=== PATIENT | male | born 1995 | race Caucasian/White ===

== ENCOUNTER 2022-06-09 13:41 | Emergency (ER) | payer MEDICAID ==
[~2022-06-09] VITALS: Ht 180.3 cm; Wt 86.2 kg
[2022-06-09] MEDS ORDERED: PRED20TA PO (14:52)
[2022-06-09] MEDS ORDERED: VALA100026 PO (14:52)
[2022-06-09 14:59] VITALS: BP 135/78
--- NOTE | 2022-06-09 14:59 | NUR ---
Patient discharged to home in stable condition. Written and verbal after care instructions given. Patient verbalizes understanding of instruction.
== END 2022-06-09 15:00 | disposition home or self-care (01) ==
LOC: ER 13:49
DX: G51.0 Bell's palsy (principal)

== ENCOUNTER 2022-08-17 20:20 | Emergency (ER) | payer MEDICAID ==
[~2022-08-17] VITALS: Ht 180.3 cm; Wt 83.9 kg
[~2022-08-17 20:20] MED LIST: PRED20TA PO; VALA100026 PO
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
[2022-08-17] MEDS ORDERED: VALA100026 PO (20:49)
[2022-08-17] MEDS ORDERED: IBUP-1957 PO (20:49)
[2022-08-17] MEDS ORDERED: PRED50TA PO (20:49)
[2022-08-17] MEDS ORDERED: IBUPROFEN 400 MG TABLET ONE (20:57)
[2022-08-17] MEDS ORDERED: predniSONE 20 MG TABLET ONE (20:57)
[2022-08-17] MEDS ORDERED: VALACYCLOVIR HCL 500 MG TABLET ONE (20:58)
[2022-08-17] MEDS ORDERED: IBUPROFEN 400 MG TABLET PO ONE (21:00)
[2022-08-17] MEDS ORDERED: VALACYCLOVIR HCL 500 MG TABLET PO ONE (21:00)
[2022-08-17] MEDS ORDERED: predniSONE 50 MG TABLET PO ONE (21:00)
--- NOTE | 2022-08-17 21:09 | NUR ---
Patient discharged to home in stable condition. RX Written and verbal after care instructions given. Patient verbalizes understanding of instruction. PT ambulatory with a steady gait
[2022-08-17 21:10] VITALS: BP 137/84
== END 2022-08-17 21:13 | disposition home or self-care (01) ==
LOC: ER 20:21
DX: G51.0 Bell's palsy (principal); Z79.899 Other long term (current) drug therapy

== ENCOUNTER 2023-04-02 02:57 | Emergency (ER) | payer MEDICAID ==
[~2023-04-02] VITALS: Ht 172.7 cm; Wt 77.1 kg
[~2023-04-02 02:57] MED LIST changes: +IBUP-1957 PO; +PRED50TA PO
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
--- NOTE | 2023-04-02 04:25 | NUR ---
XR AT BEDSIDE
[2023-04-02] MEDS ORDERED: IBUPROFEN 600 MG TABLET ONE (05:58)
[2023-04-02] MEDS ORDERED: IBUP-1955 PO (06:04)
[2023-04-02] MEDS ORDERED: IBUPROFEN 600 MG TABLET PO ONE (06:30)
[2023-04-02 08:10] VITALS: BP 121/82
--- NOTE | 2023-04-02 08:10 | NUR ---
Patient discharged to home in stable condition, ambulating. Written and verbal after care instructions given. Patient verbalizes understanding of instruction.
== END 2023-04-02 08:10 | disposition home or self-care (01) ==
LOC: ER 03:05
DX: S93.491A Sprain of other ligament of right ankle, initial encounter (principal); R07.81 Pleurodynia; Z79.899 Other long term (current) drug therapy; Y09 Assault by unspecified means; Y93.89 Activity, other specified; Y92.89 Other specified places as the place of occurrence of the external cause; Y99.8 Other external cause status
CPT/HCPCS: 71045-TC; 73610-TC

== ENCOUNTER 2025-04-09 23:39 | Emergency (ER) | payer MEDICAID, OTHER ==
[~2025-04-09] VITALS: Ht 175.3 cm; Wt 83.9 kg
[~2025-04-09 23:39] MED LIST changes: +IBUP-1955 PO
[2025-04-10 01:13] LABS: BASOPHILS # (AUTO) 0.2 K/uL (0.0-0.2); BASOPHILS % (AUTO) 1.6 % (0.0-2.0); EOSINOPHILS # (AUTO) 0.4 K/uL (0.0-0.7); EOSINOPHILS % (AUTO) 3.8 % (0.0-6.0); HEMATOCRIT 44 % (39-51); HEMOGLOBIN 14.8 g/dL (13.5-17.5); LYMPHOCYTES # (AUTO) 2.1 K/uL (0.8-4.8); LYMPHOCYTES % (AUTO) 18.5 % (20.0-44.0); MEAN CORPUSCULAR HEMOGLOBIN 30 PG (26.0-33.0); MEAN CORPUSCULAR HGB CONC 34 g/dl (31.0-36.0); MEAN CORPUSCULAR VOLUME 89 fL (80-96); MONOCYTES # (AUTO) 0.5 K/uL (0.1-1.30); MONOCYTES % (AUTO) 4.8 % (2.0-12.0); NEUTROPHILS % (AUTO) 71.3 % (43.0-81.0); PLATELET COUNT (AUTO) 346 K/uL (150-450); RED BLOOD CELL COUNT(AUTO) 4.97 MIL/uL (4.5-6.0); RED CELL DISTRIBUTION WIDTH 13.1 % (11.5-15.0); WHITE BLOOD COUNT (AUTO) 11.3 K/uL (4.3-11.0)
[2025-04-10 01:19] LABS: CALCIUM, SERUM 9.4 mg/dL (8.5-10.1); CARBON DIOXIDE 28 mmol/L (21-32); CHLORIDE 103 mmol/L (98-107); GLUCOSE 106 mg/dL (74-106); POTASSIUM 3.8 mmol/L (3.5-5.1); SODIUM SERUM 140 mmol/L (136-145); UREA NITROGEN, BLOOD 12 mg/dL (7-18)
[2025-04-10 01:31] LABS: APPEARANCE,URINE CLEAR (CLEAR); BILIRUBIN,URINE NEGATIVE (NEGATIVE); BLOOD, URINE NEGATIVE Ery/uL (NEGATIVE); COLOR,URINE YELLOW (YELLOW); KETONES,URINE 3+ mg/dL (NEGATIVE); LEUKOCYTE ESTERASE ,URINE NEGATIVE (NEGATIVE); NITRITE, URINE NEGATIVE (NEGATIVE); PROTEIN,URINE NEGATIVE (NEGATIVE); UGLUCOSE NEGATIVE (NEGATIVE)
[2025-04-10 01:32] LABS: ALANINE AMINOTRANSFERASE 13 U/L (12-78); ALBUMIN 4.3 g/dL (3.4-5.0); ALKALINE PHOSPHATASE 67 U/L (46-116); ASPARTATE AMINOTRANSFERASE 13 U/L (15-37); BILIRUBIN,TOTAL 0.6 mg/dL (0.2-1.0)
[2025-04-10 01:33] LABS: ALCOHOL, BLOOD < 3 mg/dL (0-10); NT-PRO BNP < 5 pg/mL (0-125)
[2025-04-10 01:35] LABS: ADD URINE CULTURE NO; BACTERIA,URINE None seen /HPF (None Seen); RBC,URINE NONE SEEN /HPF (0-2); SQUAMOUS EPITHELIAL CELL,UR Rare /HPF (None Seen); WBC,URINE 0-2 /HPF (0-3)
[2025-04-10 01:36] LABS: BARBITURATE, URINE NEGATIVE (NEGATIVE); BENZODIAZEPINE, URINE NEGATIVE (NEGATIVE); CANNABINOID, URINE NEGATIVE (NEGATIVE); OPIATE, URINE NEGATIVE (NEGATIVE); PHENCYCLIDINE SCREEN,URINE NEGATIVE (NEGATIVE); SPERM,URINE Present /HPF (None Seen)
[2025-04-10 01:37] LABS: AMPHETAMINE, URINE POSITIVE (NEGATIVE); COCCAINE, URINE POSITIVE (NEGATIVE)
[2025-04-10 03:37] VITALS: BP 128/71; TEMP 98.5; O2SAT 98
== END 2025-04-10 03:38 | disposition home or self-care (01) ==
LOC: ER 23:43
DX: F41.9 Anxiety disorder, unspecified (principal); F15.10 Other stimulant abuse, uncomplicated; Z79.1 Long term (current) use of non-steroidal anti-inflammatories (NSAID); Z79.52 Long term (current) use of systemic steroids; Z79.624 Long term (current) use of inhibitors of nucleotide synthesis; Z79.899 Other long term (current) drug therapy
CPT/HCPCS: 36415; 71045-TC; 80053-TC; 81001; 83880; 84484-TC; 85025-TC; G0480

== ENCOUNTER 2025-08-31 21:42 | Emergency (ER) | payer OTHER ==
[~2025-08-31] VITALS: Ht 180.3 cm; Wt 88.5 kg
[2025-08-31 22:46] VITALS: TEMP 98.2
[2025-08-31] MEDS ORDERED: NITROGLYCERIN 0.4 MG/TAB BOTTLE ONE (23:07)
[2025-08-31] MEDS ORDERED: LORAZEPAM INJ 2 MG/ML VIAL ONE (23:08)
[2025-08-31] MEDS: NITROGLYCERIN 0.4 MG/TAB BOTTLE SL ONE (23:10)
[2025-08-31] MEDS: LORAZEPAM INJ 2 MG/ML VIAL IV ONE (23:11)
[2025-08-31 23:16] LABS: PLATELET COUNT (AUTO) 342 K/uL (150-450); RED BLOOD CELL COUNT(AUTO) 4.86 MIL/uL (4.5-6.0); RED CELL DISTRIBUTION WIDTH 13.0 % (11.5-15.0); WHITE BLOOD COUNT (AUTO) 14.0 K/uL (4.3-11.0)
[2025-08-31 23:24] LABS: CALCIUM, SERUM 9.5 mg/dL (8.5-10.1); CREATININE 0.8 mg/dL (0.6-1.3); SODIUM SERUM 136 mmol/L (136-145); UREA NITROGEN, BLOOD 6 mg/dL (7-18)
[2025-08-31 23:38] LABS: NT-PRO BNP 16 pg/mL (0-125)
[2025-09-01 01:56] VITALS: BP 107/66; O2SAT 98
== END 2025-09-01 01:57 | disposition home or self-care (01) ==
LOC: ER 21:44
DX: R07.89 Other chest pain (principal); R11.0 Nausea; R42 Dizziness and giddiness; F14.90 Cocaine use, unspecified, uncomplicated; R06.02 Shortness of breath; Z79.1 Long term (current) use of non-steroidal anti-inflammatories (NSAID)
CPT/HCPCS: 99285; 96374; 71045; 93005; 85025; 80048; 36415 ×2; 84484 ×2; 83880; J2060